=== PATIENT | female | born 1940 | race Caucasian/White ===

== ENCOUNTER 2021-04-07 19:39 | Inpatient (IN) | payer BC ==
[2021-04-07] MEDS ORDERED: SODIUM CHLORIDE 0.9% 1,000 ML IV STA (20:09)
--- NOTE | 2021-04-07 20:16 | ED ---
General Adult HPI - General Chief complaint: Arrhythmia/Palpitations Stated complaint: chest presure Time Seen by Provider: 04/07/21 19:56 Source: patient Mode of arrival: wheelchair - History of Present Illness Initial comments: Dictation was produced using [employer] dictation software. please excuse any grammatical, word or spelling errors. Chief Complaint: 80-year-old female presents with episode of chest pressure History of Present Illness: Is 80-year-old female she was at a wedding when she experience proximally 45 minute episode of chest pressure. She had a similar event yesterday that didn't last as long. She states she felt something in her chest that wasn't exactly pain that she describes. She states that she's been under a lot of stress recently. 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 She did not have any alcohol or just any illicit substances. She denies any symptoms currently at this time. Her grandson is a ER registered nurse. He had some equipment and she was found have a heart rate measuring 150s and irregular. There was concern that patient had episode of age of fibrillation with rapid ventricular rate. She is asymptomatic at this time. She denies having had any palpitations today. The ROS documented in this emergency department record has been reviewed and confirmed by me. Those systems with pertinent positive or negative responses have been documented in the HPI. All other systems are other negative and/or noncontributory. PHYSICAL EXAM: General Impression: Alert and oriented x3, not in acute distress HEENT: Normocephalic atraumatic, extra-ocular movements intact, pupils equal and reactive to light bilaterally, mucous membranes moist. Cardiovascular: Heart regular rate and rhythm Chest: Able to complete full sentences, no retractions, no tachypnea Abdomen: abdomen soft, non-tender, non-distended, no organomegaly Musculoskeletal: Pulses present and equal in all extremities, no peripheral edema Motor: no focal deficits noted Neurological: CN II-XII grossly intact, no focal motor or sensory deficits noted Skin: Intact with no visualized rashes Psych: Normal affect and mood ED course: 80-year-old female presents to the emergency department for chest pressure all signs upon arrival are within acceptable limits. EKG shows sinus arrhythmia. Computer interpreted it as second-degree AV block Mobitz type II. This agreed EKG appears to be sinus arrhythmia. EKG interpretation: Ventricular rate 103, sinus tachycardia, HI interval 184, QRS 90, QTC 335.. No HI prolongation, no QTC prolongation, no ST or T-wave changes noted. No old EKG for comparison. Patient reevaluated at 9:30 PM. She continues to deny any chest pain. Labora tory evaluation obtained. CBC within acceptable limits. Coag panel is negative. Metabolic panel shows slight elevation of renal markers. There is mild gap acidosis. Troponin level 0.149. Clinical presentation concerning for end STEMI. She states that she had a echocardiogram performed recently that was unremarkable. Her most recent stress test was from approximately 1 year ago. Chest x-ray is unremarkable. Patient given aspirin and started on heparin. Patient be admitted for cardiac monitoring, cardiology consultation and serial troponins. - Related Data Home Medications Medication Instructions Recorded Confirmed Ascorbic Acid [Vitamin C] 1,000 mg PO DAILY 04/07/21 04/07/21 Biotin 5 mg PO DAILY 04/07/21 04/07/21 Cholecalciferol [Vitamin D3 (25 50 mcg PO DAILY 04/07/21 04/07/21 Mcg = 1000 Iu)] Citalopram Hydrobromide [CeleXA] 20 mg PO DAILY 04/07/21 04/07/21 Metoprolol Succinate (ER) [Toprol 100 mg PO DAILY 04/07/21 04/07/21 Xl] Multivitamins, Thera [Multivitamin 1 tab PO DAILY 04/07/21 04/07/21 (formulary)] NIFEdipine [NIFEdipine ER] 90 mg PO DAILY 04/07/21 04/07/21 Pravastatin Sodium [Pravachol] 40 mg PO HS 04/07/21 04/07/21 Zinc 50 mg PO DAILY 04/07/21 04/07/21 lisinopriL 10 mg PO BID 04/07/21 04/07/21 metFORMIN HCL 1,000 mg PO BID 04/07/21 04/07/21 Allergies Allergy/AdvReac Type Severity Reaction Status Date / Time cashew nut Allergy Unknown Verified 04/07/21 21:01 chlorthalidone Allergy Unknown Verified 04/07/21 21:01 [From [place]] Fish Containing Products Allergy Unknown Verified 04/07/21 21:01 [Fish] Review of Systems ROS Statement: Those systems with pertinent positive or pertinent negative responses have been documented in the HPI. ROS Other: All systems not noted in ROS Statement are negative. Past Medical History Past Medical History: Diabetes Mellitus, Hypertension History of Any Multi-Drug Resistant Organisms: None Reported Past Surgical History: Cholecystectomy Additional Past Surgical History / Comment(s): mastectomy, cyst removed on back, pna Past Psychological History: No Psychological Hx Reported Smoking Status: Never smoker Past Alcohol Use History: None Reported Past Drug Use History: None Reported Course Vital Signs 04/07/21 19:47 Temperature 98.2 F Pulse Rate 95 Respiratory 18 Rate Blood Pressure 120/69 O2 Sat by Pulse 95 Oximetry Medical Decision Making - Lab Data Result diagrams: 04/07/21 20:12 04/07/21 20:12 Lab Results 04/07/21 04/07/21 04/07/21 Range/Units 20:12 20:12 20:12 WBC 11.3 H (3.8-10.6) k/uL RBC 4.41 (3.80-5.40) m/uL Hgb 13.0 (11.4-16.0) gm/dL Hct 38.6 (34.0-46.0) % MCV 87.4 (80.0-100.0) fL MCH 29.4 (25.0-35.0) pg MCHC 33.7 (31.0-37.0) g/dL RDW 15.2 (11.5-15.5) % Plt Count 435 (150-450) k/uL MPV 7.2 Neutrophils % 77 % Lymphocytes % 15 % Monocytes % 4 % Eosinophils % 1 % Basophils % 1 % Neutrophils # 8.7 H (1.3-7.7) k/uL Lymphocytes # 1.7 (1.0-4.8) k/uL Monocytes # 0.5 (0-1.0) k/uL Eosinophils # 0.2 (0-0.7) k/uL Basophils # 0.1 (0-0.2) k/uL PT 10.1 (9.0-12.0) sec INR 0.9 (<1.2) APTT 24.3 (22.0-30.0) sec Sodium 137 (137-145) mmol/L Potassium 4.3 (3.5-5.1) mmol/L Chloride 103 (98-107) mmol/L Carbon Dioxide 19 L (22-30) mmol/L Anion Gap 15 mmol/L BUN 29 H (7-17) mg/dL Creatinine 1.10 H (0.52-1.04) mg/dL Est GFR (CKD-EPI)AfAm 54 (>60 ml/min/1.73 sqM) Est GFR (CKD-EPI)NonAf 47 (>60 ml/min/1.73 sqM) Glucose 220 H (74-99) mg/dL Calcium 10.0 (8.4-10.2) mg/dL Magnesium 1.4 L (1.6-2.3) mg/dL Total Bilirubin 0.3 (0.2-1.3) mg/dL AST 32 (14-36) U/L ALT 19 (4-34) U/L Alkaline Phosphatase 81 (38-126) U/L Troponin I (0.000-0.034) ng/mL Total Protein 7.9 (6.3-8.2) g/dL Albumin 4.8 (3.5-5.0) g/dL TSH 0.241 L (0.465-4.680) mIU/L /03/21 Range/Units 20:12 WBC (3.8-10.6) k/uL RBC (3.80-5.40) m/uL Hgb (11.4-16.0) gm/dL Hct (34.0-46.0) % MCV (80.0-100.0) fL MCH (25.0-35.0) pg MCHC (31.0-37.0) g/dL RDW (11.5-15.5) % Plt Count (150-450) k/uL MPV Neutrophils % % Lymphocytes % % Monocytes % % Eosinophils % % Basophils % % Neutrophils # (1.3-7.7) k/uL Lymphocytes # (1.0-4.8) k/uL Monocytes # (0-1.0) k/uL Eosinophils # (0-0.7) k/uL Basophils # (0-0.2) k/uL PT (9.0-12.0) sec INR (<1.2) APTT (22.0-30.0) sec Sodium (137-145) mmol/L Potassium (3.5-5.1) mmol/L Chloride (98-107) mmol/L Carbon Dioxide (22-30) mmol/L Anion Gap mmol/L BUN (7-17) mg/dL Creatinine (0.52-1.04) mg/dL Est GFR (CKD-EPI)AfAm (>60 ml/min/1.73 sqM) Est GFR (CKD-EPI)NonAf (>60 ml/min/1.73 sqM) Glucose (74-99) mg/dL Calcium (8.4-10.2) mg/dL Magnesium (1.6-2.3) mg/dL Total Bilirubin (0.2-1.3) mg/dL AST (14-36) U/L ALT (4-34) U/L Alkaline Phosphatase (38-126) U/L Troponin I 0.149 H* (0.000-0.034) ng/mL Total Protein (6.3-8.2) g/dL Albumin (3.5-5.0) g/dL TSH (0.465-4.680) mIU/L Disposition Clinical Impression: Chest pain Disposition: ADMITTED IP TO THIS [facility] Condition: Fair Referrals: Nonstaff,Physician [Primary Care Provider] - 1-2 days
[2021-04-07 20:34] LABS: Basophils # (A) 0.1 k/uL (0-0.2); Basophils % (A) 1 %; Eosinophils # (A) 0.2 k/uL (0-0.7); Eosinophils % (A) 1 %; HCT 38.6 % (34.0-46.0); INR 0.9 (<1.2); Lymphocytes # (A) 1.7 k/uL (1.0-4.8); Lymphocytes % (A) 15 %; MCH 29.4 pg (25.0-35.0); MCHC 33.7 g/dL (31.0-37.0); MCV 87.4 fL (80.0-100.0); Mean Platelet Volume 7.2; Monocytes # (A) 0.5 k/uL (0-1.0); Monocytes % (A) 4 %; Neutrophils # (A) 8.7 k/uL (1.3-7.7); Neutrophils % (A) 77 %; Partial Thromboplastin Time 24.3 sec (22.0-30.0); Platelet Count 435 k/uL (150-450); Prothrombin Time 10.1 sec (9.0-12.0); RBC 4.41 m/uL (3.80-5.40); RDW 15.2 % (11.5-15.5); WBC 11.3 k/uL (3.8-10.6)
[2021-04-07 20:35] LABS: Albumin 4.8 g/dL (3.5-5.0); Magnesium 1.4 mg/dL (1.6-2.3); Potassium 4.3 mmol/L (3.5-5.1); Total Bilirubin 0.3 mg/dL (0.2-1.3); Total Protein 7.9 g/dL (6.3-8.2)
--- NOTE | 2021-04-07 20:46 | XR ---
EXAMINATION TYPE: XR chest 2V DATE OF EXAM: 04/07/2021 COMPARISON: NONE HISTORY: Tachycardia TECHNIQUE: 2 views FINDINGS: There is no heart failure nor confluent pneumonic infiltrate. Costophrenic angles are clear . Thoracic aorta is atheromatous. Bony thorax appears intact. IMPRESSION: No active cardiopulmonary disease.
[2021-04-07] MEDS ORDERED: MAGNESIUM OXIDE 400 MG TAB PO STA (21:04)
[2021-04-07] MEDS ORDERED: HEPARIN SODIUM 1,000 UN/ML (10ML VL) IV ONE (21:19)
[2021-04-07] MEDS ORDERED: HEPARIN SODIUM 1,000 UN/ML (10ML VL) IV PRN (21:19)
[2021-04-07] MEDS ORDERED: ASPIRIN 81 MG PO STA (21:19)
[2021-04-07] MEDS ORDERED: NITROGLYCERIN SL TABS 0.4 MG TAB SUBLINGUAL PRN (21:26)
[2021-04-07] MEDS ORDERED: HEPARIN SOD,PORK IN 0.45% NACL 25,000 UNIT in 0.45% NACL 1 250ML.BAG IV SCH (21:30)
[2021-04-08 06:13] LABS: Glucose,Whole Blood 128 mg/dL (75-99)
[2021-04-08] MEDS: INSULIN ASPART (NovoLOG) 100 UNIT/ML VIAL SQ SCH ×4 (06:17→21:03)
[2021-04-08] MEDS ORDERED: HEPARIN SODIUM,PORCINE 2,500 UNIT in SODIUM CHLORIDE 0.9% 250 ML IRRIGATION PRN (07:00)
[2021-04-08] MEDS ORDERED: HEPARIN SODIUM,PORCINE 10,000 UNIT in SODIUM CHLORIDE 0.9% 1,000 ML IRRIGATION PRN (07:00)
[2021-04-08] MEDS ORDERED: lisinopriL 10 MG TAB PO SCH (09:00)
[2021-04-08] MEDS ORDERED: metFORMIN 500 MG TAB PO SCH (09:00)
[2021-04-08] MEDS ORDERED: NON FORMULARY DRUG (Biotin [Biotin] 5 MG Capsule) PO SCH (09:00)
[2021-04-08] MEDS ORDERED: ASPIRIN 325 MG TAB PO SCH (09:00)
[2021-04-08 10:04] LABS: Chol/HDL Ratio 3.81; LDL Cholesterol,Calculated 61.2 mg/dL (0.0-131.0); VLDL Calculation 25.8 mg/dL (5.00-40.00)
[2021-04-08] MEDS ORDERED: ATORVASTATIN 80 MG TAB PO STA (10:07)
[2021-04-08] MEDS ORDERED: ALPRAZolam 0.25 MG TAB PO PRN (10:07)
[2021-04-08] MEDS ORDERED: NITROGLYCERIN SL TABS 0.4 MG TAB SUBLINGUAL PRN (10:07)
[2021-04-08] MEDS ORDERED: ALPRAZolam 0.5 MG TAB PO PRN (10:07)
[2021-04-08] MEDS ORDERED: SODIUM CHLORIDE 0.9% 1,000 ML in EMPTY BAG 1 BAG IV ONE (10:07)
[2021-04-08] MEDS ORDERED: ASPIRIN 325 MG TAB PO STA (10:07)
[2021-04-08] MEDS ORDERED: HEPARIN SODIUM 1,000 UN/ML (10ML VL) ONE (11:16)
[2021-04-08] MEDS ORDERED: fentaNYL (PF) 50 MCG/ML 2 ML AMP ONE (11:16)
[2021-04-08] MEDS ORDERED: VERAPAMIL 2.5 MG/ML 2 ML AMP ONE (11:16)
[2021-04-08] MEDS ORDERED: LIDOCAINE 1% INJ 10MG/ML (20 ML MDV) ONE (11:16)
[2021-04-08] MEDS ORDERED: IV FLUID CONTINUATION 500 ML IV ONE (11:19)
[2021-04-08] MEDS ORDERED: MIDAZOLAM 2 MG/2 ML VIAL IV ONE (11:46)
[2021-04-08] MEDS ORDERED: fentaNYL (PF) 50 MCG/ML 2 ML AMP IV ONE (11:46)
[2021-04-08] MEDS ORDERED: LIDOCAINE 1% INJ 10MG/ML (20 ML MDV) SQ ONE (11:47)
[2021-04-08] MEDS ORDERED: VERAPAMIL SYRINGE (5 MG/10 ML) INTRAARTER ONE (11:49)
--- NOTE | 2021-04-08 11:50 | P.HPIM ---
History of Present Illness Patient is a very pleasant 80-year-old female came in with chest pressure like sensation and awaiting nonexertional. Patient had associated diaphoresis patient chest pressure is very minimal, patient has been on under a lot of stre ss lately. Patient denied any fever chills patient any significant cough. Patient is found to have elevated troponins and EKG showing some acute ST-T wave changes in the inferolateral leads. Someone at the wedding noted that the patient's heart rate is 150s and irregular. Patient did have sinus tachycardia with AV block Mobitz type II with 2:1 conduction. Patient has a normal T4 and low TSH. Patient troponin was 1.6 and 0. Patient's creatinine is 1.1 baseline is within normal limits. Patient does have some leukocytosis. REVIEW OF SYSTEMS: CONSTITUTIONAL: No fever, no malaise, no fatigue. HEENT: No recent visual problems or hearing problems. Denied any sore throat. CARDIOVASCULAR: No orthopnea, PND, no palpitations, no syncope. PULMONARY: No shortness of breath, no cough, no hemoptysis. GASTROINTESTINAL: No diarrhea, no nausea, no vomiting, no abdominal pain. NEUROLOGICAL: No headaches, no weakness, no numbness. HEMATOLOGICAL: Denies any bleeding or petechiae. GENITOURINARY: Denies any burning micturition, frequency, or urgency. MUSCULOSKELETAL/RHEUMATOLOGICAL: Denies any joint pain, swelling, or any muscle pain. ENDOCRINE: Denies any polyuria or polydipsia. The rest of the 14-point review of systems is negative. PHYSICAL EXAMINATION: GENERAL: The patient is alert and oriented x3, not in any acute distress. Well developed, well nourished. HEENT: Pupils are round and equally reacting to light. EOMI. No scleral icterus. No conjunctival pallor. Normocephalic, atraumatic. No pharyngeal erythema. No thyromegaly. CARDIOVASCULAR: S1 and S2 present. No murmurs, rubs, or gallops. PULMONARY: Chest is clear to auscultation, no wheezing or crackles. ABDOMEN: Soft, nontender, nondistended, normoactive bowel sounds. No palpable organomegaly. MUSCULOSKELETAL: No joint swelling or deformity. EXTREMITIES: No cyanosis, clubbing, or pedal edema. NEUROLOGICAL: Gross neurological examination did not reveal any focal deficits. SKIN: No rashes. Assessment and plan -Chest pain possibly of nonacute ST elevation myocardial infarction patient is undergoing cardiac catheterization today continue with IV heparin. -Mobitz type II AV block: Probably secondary to acute myocardial infarction further management as per cardiology. -Leukocytosis reactive in nature -Hypomagnesemia magnesium will be replaced -Mild acute renal failure secondary to acute myocardial infarction -Anion gap metabolic acidosis probably secondary to lactic acidosis secondary to metformin which is being held. -Type 2 diabetes mellitus: Hold off metformin patient will be on sliding scale insulin -Hypertension -Hyperlipidemia DVT prophylaxis: Patient is on anticoagulation with IV heparin at this time Past Medical History Past Medical History: Diabetes Mellitus, Hypertension History of Any Multi-Drug Resistant Organisms: None Reported Past Surgical History: Cholecystectomy Additional Past Surgical History / Comment(s): L mastectomy, cyst removed on back, pna Past Anesthesia/Blood Transfusion Reactions: No Reported Reaction Past Psychological History: No Psychological Hx Reported Smoking Status: Former smoker Past Alcohol Use History: None Reported Past Drug Use History: None Reported Medications and Allergies Home Medications Medication Instructions Recorded Confirmed Type Ascorbic Acid [Vitamin C] 1,000 mg PO DAILY 04/07/21 04/07/21 History Biotin 5 mg PO DAILY 04/07/21 04/07/21 History Cholecalciferol [Vitamin D3 (25 50 mcg PO DAILY 04/07/21 04/07/21 History Mcg = 1000 Iu)] Citalopram Hydrobromide [CeleXA] 20 mg PO DAILY 04/07/21 04/07/21 History Metoprolol Succinate (ER) [Toprol 100 mg PO DAILY 04/07/21 04/07/21 History Xl] Multivitamins, Thera [Multivitamin 1 tab PO DAILY 04/07/21 04/07/21 History (formulary)] NIFEdipine [NIFEdipine ER] 90 mg PO DAILY 04/07/21 04/07/21 History Pravastatin Sodium [Pravachol] 40 mg PO HS 04/07/21 04/07/21 History Zinc 50 mg PO DAILY 04/07/21 04/07/21 History lisinopriL 10 mg PO BID 04/07/21 04/07/21 History metFORMIN HCL 1,000 mg PO BID 04/07/21 04/07/21 History Allergies Allergy/AdvReac Type Severity Reaction Status Date / Time cashew nut Allergy Unknown Verified 04/07/21 21:01 chlorthalidone Allergy Unknown Verified 04/07/21 21:01 [From [place]] Fish Containing Products Allergy Unknown Verified 04/07/21 21:01 [Fish] Physical Exam Vitals: Vital Signs Temp Pulse Pulse Resp BP BP Pulse Ox 04/08/21 08:00 97.7 F 71 17 147/69 98 04/08/21 03:48 97.6 F 84 17 118/64 04/08/21 00:52 72 17 04/08/21 00:00 97.5 F L 72 17 111/58 92 L 04/07/21 22:04 93 18 115/61 97 04/07/21 21:42 97.8 F 63 17 104/53 97 04/07/21 19:47 98.2 F 95 18 120/69 95 Intake and Output 04/07/21 04/08/21 04/08/21 22:59 06:59 14:59 Other: # Voids 1 2 Weight 81.647 kg 88.8 kg Results CBC & Chem 7: 04/07/21 20:12 04/07/21 20:12 Labs: Abnormal Lab Results - Last 24 Hours (Table) 04/07/21 04/07/21 04/07/21 Range/Units 20:12 20:12 20:12 WBC 11.3 H (3.8-10.6) k/uL Neutrophils # 8.7 H (1.3-7.7) k/uL APTT (22.0-30.0) sec Carbon Dioxide 19 L (22-30) mmol/L BUN 29 H (7-17) mg/dL Creatinine 1.10 H (0.52-1.04) mg/dL Glucose 220 H (74-99) mg/dL POC Glucose (mg/dL) (75-99) mg/dL Magnesium 1.4 L (1.6-2.3) mg/dL Troponin I 0.149 H* (0.000-0.034) ng/mL HDL Cholesterol (40.0-60.0) mg/dL TSH 0.241 L (0.465-4.680) mIU/L 04/07/21 04/08/21 04/08/21 Range/Units 22:59 04:37 04:37 WBC (3.8-10.6) k/uL Neutrophils # (1.3-7.7) k/uL APTT (22.0-30.0) sec Carbon Dioxide (22-30) mmol/L BUN (7-17) mg/dL Creatinine (0.52-1.04) mg/dL Glucose (74-99) mg/dL POC Glucose (mg/dL) (75-99) mg/dL Magnesium (1.6-2.3) mg/dL Troponin I 0.717 H* 1.610 H* (0.000-0.034) ng/mL HDL Cholesterol 31.0 L (40.0-60.0) mg/dL TSH (0.465-4.680) mIU/L 04/08/21 04/08/21 Range/Units 04:37 06:11 WBC (3.8-10.6) k/uL Neutrophils # (1.3-7.7) k/uL APTT 46.2 H (22.0-30.0) sec Carbon Dioxide (22-30) mmol/L BUN (7-17) mg/dL Creatinine (0.52-1.04) mg/dL Glucose (74-99) mg/dL POC Glucose (mg/dL) 128 H (75-99) mg/dL Magnesium (1.6-2.3) mg/dL Troponin I (0.000-0.034) ng/mL HDL Cholesterol (40.0-60.0) mg/dL TSH (0.465-4.680) mIU/L Thrombosis Risk Factor Assmnt - Choose All That Apply Any of the Below Risk Factors Present?: Yes Each Factor Represents 1 point: Obesity (BMI >25) Other Risk Factors: Yes Each Risk Factor Represents 3 Points: Age 75 years or older Other congenital or acquired thrombophilia - If yes, enter type in comment: No Thrombosis Risk Factor Assessment Total Risk Factor Score: 4 Thrombosis Risk Factor Assessment Level: Moderate Risk
[2021-04-08] MEDS: HEPARIN SODIUM 1,000 UN/ML (10ML VL) IV ONE ×2 (11:58→12:23)
[2021-04-08] MEDS ORDERED: METOPROLOL TARTRATE 5 MG/5 ML VIAL IVP ONE ×2 (12:04→12:10)
[2021-04-08] MEDS ORDERED: CLOPIDOGREL 75 MG TAB ONE (12:11)
[2021-04-08] MEDS ORDERED: SODIUM CHLORIDE 0.9% IV ONE ×2 (12:12)
[2021-04-08] MEDS ORDERED: AMIODARONE IV ONE ×2 (12:12)
[2021-04-08] MEDS ORDERED: CLOPIDOGREL 75 MG TAB PO ONE (12:19)
[2021-04-08] MEDS ORDERED: DEXTROSE 5% IN WATER 250 ML with AMIODARONE 300 MG IV ONE (12:30)
[2021-04-08] MEDS ORDERED: DILTIAZEM DRIP BOLUS FROM BAG 1 MG SOLN IV ONE (12:30)
[2021-04-08] MEDS ORDERED: IOPAMIDOL-370 125ML BTL INJ ONE (12:33)
[2021-04-08] MEDS: DILTIAZEM 125 MG in SODIUM CHLORIDE 0.9% 100 ML IV SCH (12:47)
[2021-04-08] MEDS ORDERED: AMIODARONE 360 MG in DEXTROSE 5% IN WATER 200 ML IV ONE ×2 (13:00)
--- NOTE | 2021-04-08 13:37 | P.CRDCN ---
History of Present Illness Consult date: 04/08/21 History of present illness: HISTORY OF PRESENT ILLNESS: This is a 80 year old female with a past medical history significant for hypertension, hyperlipidemia, diabetes mellitus, and former nicotine dependence. Patient follows with a Dr. Velazquez in [place], [place]. We have been asked to see the patient in consultation for elevated troponins. Patient examined at the bedside. Patient states she is in town for a wedding that she attended yesterday. She states she began having some chest pain yesterday that was right in the middle of her chest and felt like a pressure sensation. She denies having any radiation of the pain. She denied any nausea or vomiting. Denied dizziness or lightheadedness. Patient states the pain lasted for approximately one hour and was relieved when she came to the hospital. EKG is interpreted as sinus tachycardia with second-degree AV block with 2-[address] Espinosa, EKG is sinus mechanism with PACs Chest xray negative for acute process Laboratory data: WBC 11.3. Hemoglobin 13.0. Platelet count 435. Sodium 137. Potassium 4.3. BUN 29. Creatinine 1.10. Troponin 0.149. 0.717. 1.610 Current home cardiac medications include pravastatin 40 mg daily, nifedipine 90 mg daily, metoprolol succinate 100 mrem daily, lisinopril 10 mg twice a day REVIEW OF SYSTEMS: At the time of my exam: CONSTITUTIONAL: Denies fever or chills. HEENT: Denies blurred vision, vision changes, or eye pain. Denies hemoptysis CARDIOVASCULAR: Denies chest pain. Denies orthopnea. Denies PND. Denies palpitations RESPIRATORY: Denies shortness of breath. GASTROINTESTINAL: Denies abdominal pain. Denies nausea or vomiting. HEMATOLOGIC: Denies bleeding disorders. GENITOURINARY: Denies any blood in urine. SKIN: Denies pruitis. Denies rash. PHYSICAL EXAM: VITAL SIGNS: Reviewed. GENERAL: Well-developed in no acute distress. HEENT: Head is normocephalic. Pupils are equal, round. Sclerae anicteric. Mucous membranes of the mouth are moist. Neck supple. No JVD or thyromegaly LUNGS: Respirations even and unlabored. Lungs essentially clear to auscultation bilaterally. HEART: Regular rate and rhythm. S1 and S2 heard. ABDOMEN: Soft. Nondistended. Nontender. EXTREMITIES: Normal range of motion. No clubbing or cyanosis. Peripheral pulses intact. No lower extremity edema NEUROLOGIC: Awake and alert. Oriented x 3. ASSESSMENT: Non-STEMI Hypertension Hyperlipidemia Diabetes Former nicotine dependence PLAN: Obtain 2-D echo to assess cardiac structure and function Resume home cardiac medications Patient to undergo cardiac catheterization today with Dr. Husain Further recommendations pending patient course Nurse practitioner note has been reviewed by physician. Signing provider agrees with the documented findings, assessment, and plan of care. Past Medical History Past Medical History: Diabetes Mellitus, Hypertension History of Any Multi-Drug Resistant Organisms: None Reported Past Surgical History: Cholecystectomy Additional Past Surgical History / Comment(s): L mastectomy, cyst removed on back, pna Past Anesthesia/Blood Transfusion Reactions: No Reported Reaction Past Psychological History: No Psychological Hx Reported Smoking Status: Former smoker Past Alcohol Use History: None Reported Past Drug Use History: None Reported Medications and Allergies Home Medications Medication Instructions Recorded Confirmed Type Ascorbic Acid [Vitamin C] 1,000 mg PO DAILY 04/07/21 04/07/21 History Biotin 5 mg PO DAILY 04/07/21 04/07/21 History Cholecalciferol [Vitamin D3 (25 50 mcg PO DAILY 04/07/21 04/07/21 History Mcg = 1000 Iu)] Citalopram Hydrobromide [CeleXA] 20 mg PO DAILY 04/07/21 04/07/21 History Metoprolol Succinate (ER) [Toprol 100 mg PO DAILY 04/07/21 04/07/21 History Xl] Multivitamins, Thera [Multivitamin 1 tab PO DAILY 04/07/21 04/07/21 History (formulary)] NIFEdipine [NIFEdipine ER] 90 mg PO DAILY 04/07/21 04/07/21 History Pravastatin Sodium [Pravachol] 40 mg PO HS 04/07/21 04/07/21 History Zinc 50 mg PO DAILY 04/07/21 04/07/21 History lisinopriL 10 mg PO BID 04/07/21 04/07/21 History metFORMIN HCL 1,000 mg PO BID 04/07/21 04/07/21 History Allergies Allergy/AdvReac Type Severity Reaction Status Date / Time cashew nut Allergy Unknown Verified 04/07/21 21:01 chlorthalidone Allergy Unknown Verified 04/07/21 21:01 [From [place]] Fish Containing Products Allergy Unknown Verified 04/07/21 21:01 [Fish] Physical Exam Vitals: Vital Signs Temp Pulse Pulse Resp BP BP Pulse Ox 04/08/21 08:00 97.7 F 71 17 147/69 98 04/08/21 03:48 97.6 F 84 17 118/64 04/08/21 00:52 72 17 04/08/21 00:00 97.5 F L 72 17 111/58 92 L 04/07/21 22:04 93 18 115/61 97 04/07/21 21:42 97.8 F 63 17 104/53 97 04/07/21 19:47 98.2 F 95 18 120/69 95 Intake and Output 04/07/21 04/08/21 04/08/21 22:59 06:59 14:59 Intake Total 265 Balance 265 Intake: IV 265 Other: # Voids 1 2 Weight 81.647 kg 88.8 kg Results 04/07/21 20:12 04/07/21 20:12 Cardiac Enzymes 04/07/21 04/07/21 04/07/21 Range/Units 20:12 20:12 22:59 AST 32 (14-36) U/L Troponin I 0.149 H* 0.717 H* (0.000-0.034) ng/mL 04/08/21 Range/Units 04:37 AST (14-36) U/L Troponin I 1.610 H* (0.000-0.034) ng/mL Coagulation 04/07/21 04/08/21 Range/Units 20:12 04:37 PT 10.1 (9.0-12.0) sec APTT 24.3 46.2 H (22.0-30.0) sec Lipids 04/08/21 Range/Units 04:37 Triglycerides 129.0 (0.0-149.0) mg/dL Cholesterol 118 (0-200) mg/dL HDL Cholesterol 31.0 L (40.0-60.0) mg/dL Cholesterol/HDL Ratio 3.81 CBC 04/07/21 Range/Units 20:12 WBC 11.3 H (3.8-10.6) k/uL RBC 4.41 (3.80-5.40) m/uL Hgb 13.0 (11.4-16.0) gm/dL Hct 38.6 (34.0-46.0) % Plt Count 435 (150-450) k/uL Comprehensive Metabolic Panel 04/07/21 Range/Units 20:12 Sodium 137 (137-145) mmol/L Potassium 4.3 (3.5-5.1) mmol/L Chloride 103 (98-107) mmol/L Carbon Dioxide 19 L (22-30) mmol/L BUN 29 H (7-17) mg/dL Creatinine 1.10 H (0.52-1.04) mg/dL Glucose 220 H (74-99) mg/dL Calcium 10.0 (8.4-10.2) mg/dL AST 32 (14-36) U/L ALT 19 (4-34) U/L Alkaline Phosphatase 81 (38-126) U/L Total Protein 7.9 (6.3-8.2) g/dL Albumin 4.8 (3.5-5.0) g/dL Current Medications Generic Name Dose Route Start Last Admin Trade Name Freq PRN Reason Stop Dose Admin Alprazolam 0.25 mg 04/08/21 10:07 Alprazolam 0.25 Mg Tab PO Q6HR PRN Mild Anxiety Alprazolam 0.5 mg 04/08/21 10:07 Alprazolam 0.5 Mg Tab PO Q6HR PRN Moderate Anxiety Apixaban 5 mg 04/08/21 12:45 Apixaban 5 Mg Tab PO BID [facility] Protocol Ascorbic Acid 1,000 mg 04/08/21 09:00 Ascorbic Acid 500 Mg Tab PO DAILY [facility] Atorvastatin Calcium 80 mg 04/08/21 21:00 Atorvastatin 80 Mg Tab PO HS [facility] Cholecalciferol 50 mcg 04/08/21 09:00 Cholecalciferol 25 Mcg (1000 Iu) Tablet PO DAILY [facility] Citalopram Hydrobromide 20 mg 04/08/21 09:00 Citalopram Hydrobromide 20 Mg Tab PO DAILY [facility] Clopidogrel Bisulfate 75 mg 04/09/21 09:00 Clopidogrel 75 Mg Tab PO DAILY [facility] Sodium Chloride 1,000 ml/ IV 1,000 mls @ 88.8 mls/hr 04/08/21 10:07 Solution IV 04/08/21 21:22 .[id number] ONE 1 ML/KG/HR Diltiazem HCl 125 mg/ Sodium 125 mls @ 7.5 mls/hr 04/08/21 12:30 04/08/21 12:47 Chloride IV 12 mls .[id number] [facility] Administration 7.5 MG/HR Amiodarone HCl 360 mg/ 200 mls @ 33.333 mls/hr 04/08/21 13:00 Dextrose/Water IV 04/08/21 18:59 .Q6H ONE Protocol 1 MG/MIN Sodium Chloride 1,000 mls @ 75 mls/hr 04/08/21 12:45 Saline 0.9% IV 04/09/21 07:00 .[id number] [facility] Insulin Aspart 0 unit 04/08/21 07:30 04/08/21 13:28 Insulin Aspart (Novolog) 100 Unit/Ml Vial SQ Not Given ACHS [facility] Protocol Lisinopril 10 mg 04/09/21 09:00 Lisinopril 10 Mg Tab PO DAILY [facility] Metoprolol Succinate 100 mg 04/08/21 09:00 Metoprolol Succinate (Er) 100 Mg Tab.Er.24h PO DAILY [facility] Multivitamins 1 each 04/08/21 09:00 Multivitamins, Thera 1 Each Tab PO DAILY [facility] Nifedipine 90 mg 04/08/21 09:00 Nifedipine Xl 90 Mg Tab.Er.24 PO DAILY [facility] Nitroglycerin 0.4 mg 04/08/21 10:07 Nitroglycerin Sl Tabs 0.4 Mg Tab SUBLINGUAL Q5M PRN Chest Pain Pravastatin Sodium 40 mg 04/08/21 21:00 Pravastatin Sodium 40 Mg Tab PO HS [facility] Zinc Sulfate 220 mg 04/08/21 09:00 Zinc Sulfate 220 Mg Cap PO DAILY [facility] Intake and Output 04/07/21 04/08/21 04/08/21 22:59 06:59 14:59 Intake Total 265 Balance 265 Intake: IV 265 Other: # Voids 1 2 Weight 81.647 kg 88.8 kg 04/07/21 20:12 04/07/21 20:12
--- NOTE | 2021-04-08 13:45 | PTCA ---
PERCUTANEOUSTRANS CORORONARY ANGIOGRAPHY DATE OF SERVICE: 04/08/2021 PROCEDURE: PTCA and stenting of proximal calcified RCA with a drug-eluting stent. PERFORMED BY: Dr. Minor Bryson. Moderate conscious sedation time was 32 minutes. Patient was administered Versed. Oxygen saturation, hemodynamics and EKG were monitored closely. CLINICAL INFORMATION: Mrs. Yakelin Slaughter is an 80-year-old lady with history of hypertension, diabetes, hypercholesteremia. She came here for a wedding [place] area, developed chest pain and came into the hospital. She was found to have a non-ST elevation SC. Dr. Husain evaluated the patient, performed a cardiac cath which revealed a 99% proximal RCA lesion. Moderate disease in the left system, especially in the diagonal branch. However, the RCA lesion appeared to be the culprit lesion. She was advised intervention that was performed expeditiously. PROCEDURE NOTE: The existing 6-Somali introducer in the right radial artery was used to perform procedure. I used a standard right Veronika guide catheter to cannulate the right coronary artery and a run-through wire was used to cross the lesion. The patient was administered additional 1000 units of heparin, she had already received 4000. Her ACT was about 274. The run-through wire was used to cross the lesion. Wire was kept distally. I tried to advance a 2.5 balloon, but I had difficulty because the lesion was tight and there was calcification. I used a 1.5, 12 mm long trek balloon and inflated in the lesion at 14 atmospheres. Subsequently I was able to advance the 2.5 caliber 12 mm long NC Trek balloon. With this I pre-dilated the lesion at 14 atmospheres. I then deployed a 3.25 caliber 12 mm long Xience stent at 14 atmospheres. Patient did not have any significant chest pain nor did she had EKG changes. She went into atrial fib with rapid ventricular rate. She was given amiodarone bolus and drip will be started soon. Excellent angiographic result without complication was achieved. The sheath was taken out and TR band applied as per protocol and saturation in the fingers of the right hand was 90% which is same as baseline. Excellent angiographic result was achieved. Results were discussed with the patient and her and I expect she will be discharged in the next 24 to 48 hours. RCA was stented with a drug- eluting stent of 3.25 caliber and 12 mm length with good with excellent result. MMODL / IJN: [id number] /
[2021-04-08] MEDS: NIFEdipine XL 90 MG TAB.ER.24 PO SCH (14:53)
[2021-04-08] MEDS: CITALOPRAM HYDROBROMIDE 20 MG TAB PO SCH (14:54)
[2021-04-08] MEDS: APIXABAN 5 MG TAB PO SCH ×2 (14:54→21:03)
[2021-04-08] MEDS: METOPROLOL SUCCINATE (ER) 100 MG TAB.ER.24H PO SCH (14:54)
[2021-04-08] MEDS: ZINC SULFATE 220 MG CAP PO SCH (14:54)
[2021-04-08] MEDS: CHOLECALCIFEROL 25 MCG (1000 IU) TABLET PO SCH (14:54)
[2021-04-08] MEDS: ASCORBIC ACID 500 MG TAB PO SCH (14:55)
[2021-04-08] MEDS: SODIUM CHLORIDE 0.9% 1,000 ML IV SCH (14:55)
[2021-04-08] MEDS: MULTIVITAMINS, THERA 1 EACH TAB PO SCH (14:55)
--- NOTE | 2021-04-08 15:54 | P.CARDCATH ---
Date of Procedure: 04/08/21 Preoperative Diagnosis: Non-STEMI Postoperative Diagnosis: Critical lesion involving the RCA. Severe disease involving the ostium of the first diagonal Procedure(s) Performed: Left heart catheterization without left ventriculography Description of Procedure: HISTORY: This is a 80-year-old female with history of mitral valve prolapse and mitral regurgitation who was visiting [place] and attending a wedding. At the ceremony, patient started having chest discomfort that lasted more than half hour. Patient came to the emergency room. EKG did not reveal any acute changes. However troponin values went up suggestive of non-STEMI. Patient is advised to have cardiac catheterization CONSENT:I have discussed the risks, benefits and alternative therapies for the above-mentioned procedure and for both sedation/analgesia as well as necessary blood product administration, if indicated, as they pertain to this patient. The patient has indicated understanding and acceptance of the risks and procedures discussed. PROCEDURE: Patient was brought to the lab in a fasting state. Patient was given some IV sedation. The right wrist is infiltrated with lidocaine and right radial artery was entered using Seldinger technique. A 6-Yoruba catheter was left in place and selective coronary arteriography was performed. Patient tolerated the procedure well. TR band was applied for hemostasis. No immediate complications were noted and patient was transferred to [facility] in a stable condition Conscious Sedation: Versed 1mg Fentanyl : 25 milligrams Duration : 15 minutes HEMODYNAMICS: The aortic pressure is about 110/70. The left ventricle end- diastolic pressure is about 15. No gradient across the aortic valve SELECTIVE CORONARY ARTERIOGRAPHY: LEFT MAIN: Normal length and free of occlusive disease THE LEFT ANTERIOR DESCENDING CORONARY ARTERY: . Good caliber vessel giving rise to good-sized first diagonal branch. The first diagonal branch is about 80-90% ostial and proximal stenosis. The rest of the LAD is free of occlusive disease THE LEFT CIRCUMFLEX AND IS CORONARY ARTERY: . Moderate caliber vessel free of occlusive disease THE RIGHT CORONARY ARTERY: . It caliber vessel with a critical 99% stenosis in the proximal to mid segment LEFT VENTRICULOGRAPHY: Not Performed FINAL IMPRESSION: Critical lesion involving the RCA in the midportion. There is significant disease involving the ostium and proximal portion of first diagonal PLAN: Stent placement of the RCA. He patient remains symptomatic, future intervention of diagonal branch to be considered PROGNOSIS: Fair with successful therapy
[2021-04-08 16:01] LABS: Hemoglobin A1C 6.8 % (4.0-6.0)
[2021-04-08 16:43] LABS: Glucose,Whole Blood 179 mg/dL (75-99)
[2021-04-08 20:23] LABS: Glucose,Whole Blood 143 mg/dL (75-99)
[2021-04-08] MEDS ORDERED: AMIODARONE 450 MG in DEXTROSE 5% IN WATER 250 ML IV SCH ×2 (21:00)
[2021-04-08] MEDS ORDERED: PRAVASTATIN SODIUM 40 MG TAB PO SCH (21:00)
[2021-04-08] MEDS: ATORVASTATIN 80 MG TAB PO SCH (21:03)
[2021-04-09] MEDS ORDERED: AMIODARONE 450 MG in DEXTROSE 5% IN WATER 250 ML IV SCH ×2 (02:00)
[2021-04-09] MEDS: SODIUM CHLORIDE 0.9% 1,000 ML IV SCH (02:05)
[2021-04-09] MEDS: DILTIAZEM 125 MG in SODIUM CHLORIDE 0.9% 100 ML IV SCH (05:10)
[2021-04-09 06:27] LABS: Glucose,Whole Blood 162 mg/dL (75-99)
[2021-04-09] MEDS: INSULIN ASPART (NovoLOG) 100 UNIT/ML VIAL SQ SCH ×4 (06:43→20:21)
[2021-04-09 08:13] LABS: Basophils # (A) 0.1 k/uL (0-0.2); Basophils % (A) 1 %; Eosinophils # (A) 0.3 k/uL (0-0.7); Eosinophils % (A) 3 %; HCT 35.3 % (34.0-46.0); HGB 11.8 gm/dL (11.4-16.0); Lymphocytes # (A) 1.5 k/uL (1.0-4.8); Lymphocytes % (A) 14 %; MCH 29.5 pg (25.0-35.0); MCHC 33.3 g/dL (31.0-37.0); MCV 88.7 fL (80.0-100.0); Mean Platelet Volume 7.8; Monocytes # (A) 0.7 k/uL (0-1.0); Monocytes % (A) 6 %; Neutrophils # (A) 8.5 k/uL (1.3-7.7); Neutrophils % (A) 75 %; Platelet Count 329 k/uL (150-450); RBC 3.98 m/uL (3.80-5.40); WBC 11.3 k/uL (3.8-10.6)
[2021-04-09 08:33] LABS: Calcium 9.2 mg/dL (8.4-10.2); Magnesium 1.4 mg/dL (1.6-2.3)
[2021-04-09] MEDS ORDERED: ASPIRIN 325 MG TAB PO SCH (09:00)
[2021-04-09] MEDS ORDERED: lisinopriL 10 MG TAB PO SCH (09:00)
[2021-04-09] MEDS ORDERED: ASPIRIN 81 MG PO SCH (09:00)
[2021-04-09] MEDS: AMIODARONE 200 MG TAB PO SCH ×2 (09:55→20:17)
[2021-04-09] MEDS: MULTIVITAMINS, THERA 1 EACH TAB PO SCH (09:55)
[2021-04-09] MEDS: CHOLECALCIFEROL 25 MCG (1000 IU) TABLET PO SCH (09:55)
[2021-04-09] MEDS: APIXABAN 5 MG TAB PO SCH ×2 (09:55→20:16)
[2021-04-09] MEDS: CITALOPRAM HYDROBROMIDE 20 MG TAB PO SCH (09:55)
[2021-04-09] MEDS: CLOPIDOGREL 75 MG TAB PO SCH (09:55)
[2021-04-09] MEDS: ZINC SULFATE 220 MG CAP PO SCH (09:55)
[2021-04-09] MEDS: ASCORBIC ACID 500 MG TAB PO SCH (09:55)
[2021-04-09] MEDS: METOPROLOL SUCCINATE (ER) 50 MG TAB.ER.24H PO SCH ×2 (09:56→20:16)
--- NOTE | 2021-04-09 10:47 | ECHOF ---
Referral Reason:chest pain, NSTEMI MEASUREMENTS -------- HEIGHT: 157.5 cm WEIGHT: 88.5 kg BP: 129/86 IVSd: 1.2 cm (0.6 - 1.1) LVIDd: 4.5 cm (3.9 - 5.3) LVPWd: 1.3 cm (0.6 - 1.1) IVSs: 1.8 cm LVIDs: 3.6 cm LVPWs: 1.4 cm LAESV Index (A-L): 54.15 ml/m Ao Diam: 2.8 cm (2.0 - 3.7) AV Cusp: 1.4 cm (1.5 - 2.6) LA Diam: 3.2 cm (2.7 - 3.8) MV EXCURSION: 20.477 mm (> 18.000) MV EF SLOPE: 97 mm/s (70 - 150) EPSS: 0.9 cm MV E Fabricio: 1.61 m/s MV DecT: 197 ms MV A Fabricio: 1.01 m/s MV E/A Ratio: 1.59 AV maxP.30 mmHg AV meanP.53 mmHg RAP: 5.00 mmHg RVSP: 54.08 mmHg FINDINGS -------- This was a technically difficult study with suboptimal views. The left ventricular size is normal. There is mild concentric left ventricular hypertrophy. Overa ll left ventricular systolic function is mildly impaired with, an EF between 45 - 50 %. Basal infer ior LV wall motion is hypokinetic. The right ventricle is normal in size. LA is severely dilated >40 ml/m2 The right atrial size is normal. Lumason used Aortic valve is trileaflet and is mildly thickened. There is mild aortic stenosis present. Peak/m farhat gradient across the Aortic Valve is 16.30mmHg / 10.53mmHg. The mitral valve leaflets are mildly thickened. Mild mitral annular calcification present. Modera te mitral regurgitation is present , predominately a posteriorly directed jet. The tricuspid valve appears structurally normal. Mild tricuspid regurgitation present. There is m oderate pulmonary hypertension. The right ventricular systolic pressure, as measured by Doppler, is 54.08mmHg. There is no pulmonic regurgitation present. The aortic root size is normal. IVC Not well visulized. There is no pericardial effusion. CONCLUSIONS -------- 1. The left ventricular size is normal. 2. There is mild concentric left ventricular hypertrophy. 3. Overall left ventricular systolic function is mildly impaired with, an EF between 45 - 50 %. 4. Basal inferior LV wall motion is hypokinetic. 5. LA is severely dilated >40 ml/m2 6. Aortic valve is trileaflet and is mildly thickened. 7. There is mild aortic stenosis present. 8. Peak/mean gradient across the Aortic Valve is 16.30mmHg / 10.53mmHg. 9. The mitral valve leaflets are mildly thickened. 10. Mild mitral annular calcification present. 11. Moderate mitral regurgitation is present. 12. Mild tricuspid regurgitation present. 13. There is moderate pulmonary hypertension. 14. The right ventricular systolic pressure, as measured by Doppler, is 54.08mmHg. 15. There is no pulmonic regurgitation present. 16. There is no pericardial effusion. RN INTERVENTIONAL: Kailey Rene RDCS
[2021-04-09] MEDS: NIFEdipine XL 90 MG TAB.ER.24 PO SCH (11:15)
[2021-04-09] MEDS: METOPROLOL SUCCINATE (ER) 100 MG TAB.ER.24H PO SCH (11:16)
[2021-04-09 11:37] LABS: Glucose,Whole Blood 183 mg/dL (75-99)
--- NOTE | 2021-04-09 13:01 | PN ---
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 Echo revealed inferobasal hypokinesia. Ejection fraction between 45-50 percent with moderate pulmonary hypertension and mild gradient across aortic valve. She is resting comfortably without symptoms. The right radial site is clean and dry. She is doing well without symptoms. I reviewed with the patient and her the findings and the details of the procedure. She also has a diagonal stenosis which can be addressed at a later date. She is asymptomatic and ambulating without symptoms. Vital signs are stable. There is JVD of 1 cm. No carotid bruit. S1-S2 heard normally. Short ejection systolic murmur is audible at the base. Second heart sound is preserved. Lungs are clear. Abdomen is soft, nontender. Lower extremities reveal palpable pulses. No edema. Right radial site is clean and dry with a good pulse. Central nervous system grossly within normal limits. Patient developed atrial fibrillation during the procedure and I have placed her on a combination of Eliquis and Plavix. This morning she is in sinus rhythm. I am recommending that we can discontinue the Cardizem drip and IV amiodarone drip and place her on oral amiodarone at 200 mg b.i.d. and metoprolol tartrate will be 50 mg b.i.d. She can be discharged after she is up and about hopefully tomorrow morning we will discharge her and she will follow up with her water systems designer in the [place] area. She will be on Eliquis 5 mg b.i.d. and Plavix 75 mg daily. Aspirin will not be given. Discussed those in detail with the patient. Hopefully plan for discharge tomorrow. MMODL / IJN: [id number] /
--- NOTE | 2021-04-09 14:21 | P.PN ---
Subjective Non-ST elevation microinfarction Patient is a very pleasant 80-year-old female came in with chest pressure like sensation and awaiting nonexertional. Patient had associated diaphoresis patient chest pressure is very minimal, patient has been on under a lot of stress lately. Patient denied any fever chills patient any significant cough. Patient is found to have elevated troponins and EKG showing some acute ST-T wave changes in the inferolateral leads. Someone at the wedding noted that the patient's heart rate is 150s and irregular. Patient did have sinus tachycardia with AV block Mobitz type II with 2:1 conduction. Patient has a normal T4 and low TSH. Patient troponin was 1.6 and 0. Patient's creatinine is 1.1 baseline is within normal limits. Patient does have some leukocytosis. 04/09/2021 Patient underwent a cardiac catheterization and stenting to RCA. Patient's ejection fraction is bit low at 45-50% does have elevated RVSP of 54 consistent with moderate pulmonary hypertension. Patient went into atrial fibrillation received IV Cardizem and amiodarone drip presently on oral amiodarone and metoprolol. Patient was started on Eliquis 5 mg twice a day and is also on Plavix 75. Patient is on statin. Constitutional: Denied any fatigue denied any fever. Cardio vascular: denied any chest pain, palpitations Gastrointestinal denied any nausea vomiting Pulmonary: Denied any shortness of breath cough Neurologic denied any new focal deficits All inpatient medications were reviewed and appropriate changes in these medications as dictated in the interval history and assessment and plan. PHYSICAL EXAMINATION: GENERAL: The patient is alert and oriented x3, not in any acute distress. Well developed, well nourished. HEENT: Pupils are round and equally reacting to light. EOMI. No scleral icterus. No conjunctival pallor. Normocephalic, atraumatic. No pharyngeal erythema. No thyromegaly. CARDIOVASCULAR: S1 and S2 present. No murmurs, rubs, or gallops. PULMONARY: Chest is clear to auscultation, no wheezing or crackles. ABDOMEN: Soft, nontender, nondistended, normoactive bowel sounds. No palpable o rganomegaly. MUSCULOSKELETAL: No joint swelling or deformity. EXTREMITIES: No cyanosis, clubbing, or pedal edema. NEUROLOGICAL: Gross neurological examination did not reveal any focal deficits. SKIN: No rashes. Assessment and plan -acute non ST elevation myocardial infarction patient has stenting to RCA -Atrial fibrillation with rapid ventricular rate presently rate controlled patient is on metoprolol amiodarone and Eliquis. Patient is presently on Plavix as well -Leukocytosis reactive in nature -Hypomagnesemia magnesium was replaced -Mild acute renal failure secondary to acute myocardial infarction -Anion gap metabolic acidosis probably secondary to lactic acidosis secondary to metformin which is being held. Patient probably will be discharged on Januvia upon discharge because of lactic acidosis patient is not a candidate for metformin -Type 2 diabetes mellitus: Hold off metformin patient will be on sliding scale insulin -Hypertension -Hyperlipidemia DVT prophylaxis: Patient is on anticoagulation with IV heparin at this time Objective - Vital Signs Vital signs: Vital Signs Temp 98.2 F 04/09/21 11:28 Pulse 66 04/09/21 11:28 Resp 18 04/09/21 11:28 BP 130/59 04/09/21 11:28 Pulse Ox 94 L 04/09/21 11:28 Intake & Output 04/08/21 04/09/21 04/09/21 18:59 06:59 18:59 Intake Total 865 190.554 240 Balance 865 190.554 240 Weight 88.6 kg Intake: IV 265 Intake, IV Titration 190.554 Amount Amiodarone 360 mg In 190.554 Dextrose 5% in Water 200 ml @ 1 MG/MIN 33.333 mls/ hr IV .Q6H ONE Rx#: [id number] Oral 600 240 Other: Voiding Method Toilet Toilet Toilet # Voids 4 1 1 - Labs CBC & Chem 7: 04/09/21 07:40 04/09/21 07:40 Labs: Abnormal Lab Results - Last 24 Hours (Table) 04/08/21 04/08/21 04/08/21 Range/Units 04:37 16:42 20:22 WBC (3.8-10.6) k/uL Neutrophils # (1.3-7.7) k/uL Glucose (74-99) mg/dL POC Glucose (mg/dL) 179 H 143 H (75-99) mg/dL Hemoglobin A1c 6.8 H (4.0-6.0) % Magnesium (1.6-2.3) mg/dL Troponin I (0.000-0.034) ng/mL 04/09/21 04/09/21 04/09/21 Range/Units 06:26 07:40 07:40 WBC 11.3 H (3.8-10.6) k/uL Neutrophils # 8.5 H (1.3-7.7) k/uL Glucose 147 H (74-99) mg/dL POC Glucose (mg/dL) 162 H (75-99) mg/dL Hemoglobin A1c (4.0-6.0) % Magnesium 1.4 L (1.6-2.3) mg/dL Troponin I (0.000-0.034) ng/mL 04/09/21 04/09/21 Range/Units 07:40 11:35 WBC (3.8-10.6) k/uL Neutrophils # (1.3-7.7) k/uL Glucose (74-99) mg/dL POC Glucose (mg/dL) 183 H (75-99) mg/dL Hemoglobin A1c (4.0-6.0) % Magnesium (1.6-2.3) mg/dL Troponin I 0.903 H* (0.000-0.034) ng/mL
[2021-04-09 16:47] LABS: Glucose,Whole Blood 109 mg/dL (75-99)
[2021-04-09] MEDS: MAGNESIUM SULFATE-D5W PMX 1 GM in DEXTROSE/WATER 1 100ML.BAG IVPB SCH ×2 (17:41→19:05)
[2021-04-09] MEDS: ATORVASTATIN 80 MG TAB PO SCH (20:16)
[2021-04-09 20:18] LABS: Glucose,Whole Blood 218 mg/dL (75-99)
[2021-04-10 06:28] LABS: Glucose,Whole Blood 139 mg/dL (75-99)
[2021-04-10] MEDS: INSULIN ASPART (NovoLOG) 100 UNIT/ML VIAL SQ SCH ×2 (06:40→12:24)
[2021-04-10] MEDS: AMIODARONE 200 MG TAB PO SCH (08:44)
[2021-04-10] MEDS: MULTIVITAMINS, THERA 1 EACH TAB PO SCH (08:44)
[2021-04-10] MEDS: ZINC SULFATE 220 MG CAP PO SCH (08:44)
[2021-04-10] MEDS: CHOLECALCIFEROL 25 MCG (1000 IU) TABLET PO SCH (08:44)
[2021-04-10] MEDS: METOPROLOL SUCCINATE (ER) 50 MG TAB.ER.24H PO SCH (08:44)
[2021-04-10] MEDS: ASCORBIC ACID 500 MG TAB PO SCH (08:44)
[2021-04-10] MEDS: APIXABAN 5 MG TAB PO SCH (08:45)
[2021-04-10] MEDS: CITALOPRAM HYDROBROMIDE 20 MG TAB PO SCH (08:45)
[2021-04-10] MEDS: CLOPIDOGREL 75 MG TAB PO SCH (08:45)
[2021-04-10] MEDS ORDERED: lisinopriL 5 MG TAB PO SCH (09:00)
[2021-04-10 09:29] LABS: HCT 35.1 % (34.0-46.0); HGB 11.4 gm/dL (11.4-16.0); MCH 29.1 pg (25.0-35.0); MCHC 32.5 g/dL (31.0-37.0); MCV 89.5 fL (80.0-100.0); Platelet Count 368 k/uL (150-450); RBC 3.92 m/uL (3.80-5.40); RDW 14.9 % (11.5-15.5); WBC 11.1 k/uL (3.8-10.6)
[2021-04-10 09:46] LABS: Calcium 9.4 mg/dL (8.4-10.2); Potassium 4.4 mmol/L (3.5-5.1)
--- NOTE | 2021-04-10 11:01 | P.DS ---
Providers Date of admission: 04/07/21 21:26 Attending physician: Kristi Bolton Consults: 04/07/21 21:26 Consult Physician Urgent Consulting Provider: Leo Conn Consult Reason/Comments: nstemi Do you want consulting provider notified?: Yes Primary care physician: Physician Nonstaff Hospital Course: Patient is a very pleasant 80-year-old female came in with chest pressure like sensation and awaiting nonexertional. Patient had associated diaphoresis patient chest pressure is very minimal, patient has been on under a lot of stress lately. Patient denied any fever chills patient any significant cough. Patient is found to have elevated troponins and EKG showing some acute ST-T wave changes in the inferolateral leads. Someone at the wedding noted that the patient's heart rate is 150s and irregular. Patient did have sinus tachycardia with AV block Mobitz type II with 2:1 conduction. Patient has a normal T4 and low TSH. Patient troponin was 1.6 and 0. Patient's creatinine is 1.1 baseline is within normal limits. Patient does have some leukocytosis. 04/09/2021 Patient underwent a cardiac catheterization and stenting to RCA. Patient's ejection fraction is bit low at 45-50% does have elevated RVSP of 54 consistent with moderate pulmonary hypertension. Patient went into atrial fibrillation received IV Cardizem and amiodarone drip presently on oral amiodarone and metoprolol. Patient was started on Eliquis 5 mg twice a day and is also on Plavix 75. Patient is on statin. 04/10/2021 Patient is feeling better patient will be discharged today patient had atrial fibrillation because of which patient was started on amiodarone presently on 200 the twice a day which will be tapered down as an outpatient. Patient is being discharged on Plavix and the Eliquis. Patient will follow with her turner and former automatic and PCP as an outpatient. continue have leukocytosis. PHYSICAL EXAMINATION: GENERAL: The patient is alert and oriented x3, not in any acute distress. Well developed, well nourished. HEENT: Pupils are round and equally reacting to light. EOMI. No scleral icterus. No conjunctival pallor. Normocephalic, atraumatic. No pharyngeal erythema. No thyromegaly. CARDIOVASCULAR: S1 and S2 present. No murmurs, rubs, or gallops. PULMONARY: Chest is clear to auscultation, no wheezing or crackles. ABDOMEN: Soft, nontender, nondistended, normoactive bowel sounds. No palpable organomegaly. MUSCULOSKELETAL: No joint swelling or deformity. EXTREMITIES: No cyanosis, clubbing, or pedal edema. NEUROLOGICAL: Gross neurological examination did not reveal any focal deficits. SKIN: No rashes. Assessment and plan -acute non ST elevation myocardial infarction patient has stenting to RCA -Atrial fibrillation with rapid ventricular rate presently rate controlled patient is on metoprolol, amiodarone and Eliquis. Patient is presently on Plavix as well -Leukocytosis reactive in nature -Hypomagnesemia magnesium was replaced -Mild acute renal failure secondary to acute myocardial infarction creatinine fairly stable since admission -Anion gap metabolic acidosis probably secondary to lactic acidosis secondary to metformin which is being held. Patient probably will be discharged on Januvia upon discharge because of lactic acidosis patient is not a candidate for metformin -Type 2 diabetes mellitus: -Hypertension -Hyperlipidemia Patient Condition at Discharge: Fair Plan - Discharge Summary Discharge Rx Participant: No New Discharge Prescriptions: New Apixaban [Eliquis] 5 mg PO BID #60 tab Atorvastatin [Lipitor] 80 mg PO HS #30 tab Clopidogrel [Plavix] 75 mg PO DAILY #30 tab Amiodarone [Cordarone] 200 mg PO BID #30 tab Continue Multivitamins, Thera [Multivitamin (formulary)] 1 tab PO DAILY Ascorbic Acid [Vitamin C] 1,000 mg PO DAILY Metoprolol Succinate (ER) [Toprol XL] 100 mg PO DAILY Citalopram Hydrobromide [CeleXA] 20 mg PO DAILY Biotin 5 mg PO DAILY Zinc 50 mg PO DAILY Cholecalciferol [Vitamin D3 (25 Mcg = 1000 Iu)] 50 mcg PO DAILY metFORMIN HCL 1,000 mg PO BID lisinopriL 10 mg PO BID #0 Discontinued Pravastatin Sodium [Pravachol] 40 mg PO HS NIFEdipine [NIFEdipine ER] 90 mg PO DAILY Discharge Medication List Ascorbic Acid [Vitamin C] 1,000 mg PO DAILY 04/07/21 [History] Biotin 5 mg PO DAILY 04/07/21 [History] Cholecalciferol [Vitamin D3 (25 Mcg = 1000 Iu)] 50 mcg PO DAILY 04/07/21 [History] Citalopram Hydrobromide [CeleXA] 20 mg PO DAILY 04/07/21 [History] Metoprolol Succinate (ER) [Toprol XL] 100 mg PO DAILY 04/07/21 [History] Multivitamins, Thera [Multivitamin (formulary)] 1 tab PO DAILY 04/07/21 [History] Zinc 50 mg PO DAILY 04/07/21 [History] metFORMIN HCL 1,000 mg PO BID 04/07/21 [History] Apixaban [Eliquis] 5 mg PO BID #60 tab 04/09/21 [Rx] Amiodarone [Cordarone] 200 mg PO BID #30 tab 04/10/21 [Rx] Atorvastatin [Lipitor] 80 mg PO HS #30 tab 04/10/21 [Rx] Clopidogrel [Plavix] 75 mg PO DAILY #30 tab 04/10/21 [Rx] lisinopriL 10 mg PO BID #0 04/10/21 [Rx] Follow up Appointment(s)/Referral(s): Nonstaff,Physician [Primary Care Provider] - 3 Days Daniel Velazquez MD [REFERRING] - 1 Week Patient Instructions/Handouts: *Surgery [facility] - After Heart Catheterization - Flux Tube Attendant Instructions, Heart Attack (DC), A-fib (Atrial Fibrillation) (DC) Activity/Diet/Wound Care/Special Instructions: Copay for Eliquis is $30. Free 1st month will be applied at pharmacy. Discharge Disposition: HOME SELF-CARE
--- NOTE | 2021-04-10 11:19 | CDI ---
Documentation Clarification Form Date: 04/10/2021 10:39:00 AM From: Niurka Ambrosio RN, CCDS Admit Date: 04/07/2021 09:26:00 PM Patient Name: Yakelin Slaughter Visit Number: [id number] Discharge Date: ATTENTION: The Clinical Documentation Specialists (CDI) and [facility] Coding Staff appreciate your assistance in clarifying documentation. Please respond to the clarification below the line at the bottom and electronically sign. The CDI & [facility] Coding staff will review the response and follow-up if needed. Please note: Queries are made part of the Legal Health Record. If you have any questions, please contact the author of this message via ITS. Dr. Vivian Bryson Atrial fibrillation with rapid ventricular rate is documented in the procedural note on 04/08/21 and patient had PTCA and stenting of proximal RCA with drug- eluting stent. Additional clarification is requested regarding the relationship, if any, that exists between the diagnosis and the procedure. Patients Admitting Diagnosis: Non-STEMI Post-Operative Diagnosis: Same 04/08/21 Procedure performed: left heart catheterization without left ventriculography PTCA and stenting of proximal calcified RCA with a drug-eluting stent. History/Risk Factors: Hypertension, Diabetes, Hypercholesteremia Clinical Indicators: 80-year-old female develop chest pain. She was found to have a heart rate measuring 150s and irregular. EKG in ED shows sinus arrhythmia. Computer interpreted is as second-degree AV block Mobtiz type II. Her troponin level 0.149. She had a heart cath revealed a 99 % proximal RCA lesion. She was advised intervention that was performed. Procedure note indicate she went into atrial fib with rapid ventricular rate. She was given Amiodarone bolus and drip Treatment: Telemetry Monitoring Eliquis 5 MG PO BID Plavix 75 MG PO Daily Cardizem drip Amiodarone 150 MG drip (04/08-04/09) to 200 MG PO BID Lopressor 5 MG IVP (04/08 x2) Metoprolol Succinate (Ef) 50 MG PO BID What relationship, if any, exists between the diagnosis of Atrial Fibrillation and the procedure? [ ] Atrial Fibrillation is a complication of surgical procedure [ ] Atrial Fibrillation is an expected outcome of the surgical procedure [ ] Atrial Fibrillation is related to patients co-morbid condition(s) of [insert co-morbid dxs] & not a complication of the procedure [ ] Other please specify ____ [ ] Unable to determine (Template Last Revised: October 2020) MTDD
--- NOTE | 2021-04-10 11:31 | CDI ---
Documentation Clarification Form Date: 04/10/2021 11:20:48 AM From: Niurka Ambrosio RN, CCDS Admit Date: 04/07/2021 09:26:00 PM Patient Name: Yakelin Slaughter Visit Number: [id number] Discharge Date: ATTENTION: The Clinical Documentation Specialists (CDI) and [facility] Coding Staff appreciate your assistance in clarifying documentation. Please respond to the clarification below the line at the bottom and electronically sign. The CDI & [facility] Coding staff will review the response and follow-up if needed. Please note: Queries are made part of the Legal Health Record. If you have any questions, please contact the author of this message via ITS. Dr. Vivian Bryson Atrial Fibrillation is documented in the procedure note on 04/08/21 and progress note on 04/09/21. Additional clarification regarding the type of atrial fibrillation is requested. History/Risk Factors: Hypertension, Diabetes, Hypercholesteremia, Non-STEMI Clinical Indicators: 80-year-old female present to ED after she develop chest pain. She was found to have a heart rate measuring 150s and irregular. EKG in ED shows sinus arrhythmia. Computer interpreted is as second-degree AV block Mobt[place] type II. Her troponin level 0.149. She had a heart cath revealed a 99 % proximal RCA lesion. She had a PTCA and stenting of proximal RCA with drug-eluting stent and developed atrial fibrillation with rapid ventricular rate per procedure report. Treatment: Telemetry Monitoring Eliquis 5 MG PO BID Plavix 75 MG PO Daily Cardizem drip Amiodarone 150 MG drip (04/08-04/09) to 200 MG PO BID Lopressor 5 MG IVP (04/08 x2) Metoprolol Succinate (Ef) 50 MG PO BID Please clarify the type of atrial fibrillation, if known: [ ] Permanent [ ] Paroxysmal [ ] Persistent [ ] Other, please specify [ ] Unable to determine (Template Last Revised: December 2020) [ Ron YOUNG
[2021-04-10 11:43] LABS: Glucose,Whole Blood 130 mg/dL (75-99)
--- NOTE | 2021-04-10 12:15 | PN ---
PROGRESS NOTE Mrs. Slaughter is in sinus rhythm, comfortable, resting. She is hemodynamically stable. Echo findings reviewed. Discussed with the patient and her . I provided them with my cardiac cath report. The patient can be discharged today and follow up with her project management director in the [place] area within a week. Discharge instructions regarding activity, diet and medications were given. The patient will be on Plavix and Eliquis. Vitals are stable. No JVD. S1, S2 heard normally. Short systolic murmur is audible at the base. Second heart sound is preserved. Lungs revealed bilateral decent air entry. Abdomen is soft. Lower extremities reveal palpable pulses. No edema. Central nervous system is normal. RECOMMENDATIONS: The patient can be discharged on current medications and she will follow up with her own project management director in the [place] area. MMODL / IJN: [id number] /
[2021-04-10 12:21] VITALS: BP 157/83; PULSE 64; RESP 17; TEMP 98.2
--- NOTE | 2021-04-12 07:59 | CDI ---
Documentation Clarification Form Date: 04/10/2021 10:39:00 AM From: Niurka Ambrosio RN, CCDS Admit Date: 04/07/2021 09:26:00 PM Patient Name: Yakelin Slaughter Visit Number: [id number] Discharge Date: 04/10/2021 02:21:00 PM ATTENTION: The Clinical Documentation Specialists (CDI) and [facility] Coding Staff appreciate your assistance in clarifying documentation. Please respond to the clarification below the line at the bottom and electronically sign. The CDI & [facility] Coding staff will review the response and follow-up if needed. Please note: Queries are made part of the Legal Health Record. If you have any questions, please contact the author of this message via ITS. Dr. Vivian Bryson Atrial fibrillation with rapid ventricular rate is documented in the procedural note on 04/08/21 and patient had PTCA and stenting of proximal RCA with drug- eluting stent. Additional clarification is requested regarding the relationship, if any, that exists between the diagnosis and the procedure. Patients Admitting Diagnosis: Non-STEMI Post-Operative Diagnosis: Same 04/08/21 Procedure performed: left heart catheterization without left ventriculography PTCA and stenting of proximal calcified RCA with a drug-eluting stent. History/Risk Factors: Hypertension, Diabetes, Hypercholesteremia Clinical Indicators: 80-year-old female develop chest pain. She was found to have a heart rate measuring 150s and irregular. EKG in ED shows sinus arrhythmia. Computer interpreted is as second-degree AV block Mobtiz type II. Her troponin level 0.149. She had a heart cath revealed a 99 % proximal RCA lesion. She was advised intervention that was performed. Procedure note indicate she went into atrial fib with rapid ventricular rate. She was given Amiodarone bolus and drip Treatment: Telemetry Monitoring Eliquis 5 MG PO BID Plavix 75 MG PO Daily Cardizem drip Amiodarone 150 MG drip (04/08-04/09) to 200 MG PO BID Lopressor 5 MG IVP (04/08 x2) Metoprolol Succinate (Ef) 50 MG PO BID What relationship, if any, exists between the diagnosis of Atrial Fibrillation and the procedure? [ ] Atrial Fibrillation is a complication of surgical procedure [ ] Atrial Fibrillation is an expected outcome of the surgical procedure [ ] Atrial Fibrillation is related to patients co-morbid condition(s) of [insert co-morbid dxs] & not a complication of the procedure [ ] Other please specify ____ [ ] Unable to determine (Template Last Revised: October 2020) MTDD
== END 2021-04-10 14:21 | disposition home or self-care (01) | DRG 247 ==
LOC: EC 19:39 → 3SCARD 21:26
PROVIDERS: ADMIT Hospitalist; ATTEND Hospitalist
PROC: B2111ZZ Fluoroscopy of Multiple Coronary Arteries using Low Osmolar Contrast (ICD-10-PCS; 2021-04-08)
PROC: 027034Z Dilation of Coronary Artery, One Artery with Drug-eluting Intraluminal Device, Percutaneous Approach (ICD-10-PCS; principal; 2021-04-08 11:30)
PROC: 4A023N8 Measurement of Cardiac Sampling and Pressure, Bilateral, Percutaneous Approach (ICD-10-PCS; 2021-04-08 11:30)
DX: I21.4 Non-ST elevation (NSTEMI) myocardial infarction (principal); E87.2 Acidosis; N17.9 Acute kidney failure, unspecified; I44.1 Atrioventricular block, second degree; D72.829 Elevated white blood cell count, unspecified; I25.10 Atherosclerotic heart disease of native coronary artery without angina pectoris; E11.9 Type 2 diabetes mellitus without complications; Z90.12 Acquired absence of left breast and nipple; Z87.891 Personal history of nicotine dependence; Z79.899 Other long term (current) drug therapy; Z79.84 Long term (current) use of oral hypoglycemic drugs; Z79.02 Long term (current) use of antithrombotics/antiplatelets; Z79.01 Long term (current) use of anticoagulants; I48.0 Paroxysmal atrial fibrillation; I25.2 Old myocardial infarction; I25.84 Coronary atherosclerosis due to calcified coronary lesion; I10 Essential (primary) hypertension; I27.20 Pulmonary hypertension, unspecified; E83.42 Hypomagnesemia; E78.5 Hyperlipidemia, unspecified; E78.00 Pure hypercholesterolemia, unspecified; T38.3X5A Adverse effect of insulin and oral hypoglycemic [antidiabetic] drugs, initial encounter
CPT/HCPCS: 36415; 71046; 80048; 80053; 80061; 83036; 83735; 84439; 84443; 84484; 85025; 85027; 85610; 85730; 86850; 86900; 86901; 93005; 93306; 93458; 96360; 99285